=== PATIENT | male | born 1985 | race Caucasian/White ===

== ENCOUNTER 2019-03-10 17:21 | Emergency (ER) | payer OTHER ==
[~2019-03-10] VITALS: Ht 167.6 cm; Wt 68.0 kg
--- NOTE | 2019-03-10 17:21 | NUR ---
Patient BIB ambulance and brought to bed 1 and gown d/t having 2 minutes of tonic-clonic seizures @ the [facility] per report. Patient is agitated but does not complain of any pain @ this time. Patient able to answer questions but cannot provide specifics d/t agitation. Safety precautions enforced. Seizure pads in place.
--- NOTE | 2019-03-10 17:30 | NUR ---
Patient to ER bed 01 to gown for evaluation. Side rails up. Report given to Kimmie GAXIOLA.
[2019-03-10 17:31] VITALS: BP_SYST 139
--- NOTE | 2019-03-10 17:39 | NUR ---
Accjul[facility]. made aware.
--- NOTE | 2019-03-10 17:43 | NUR ---
Dr. Sweeney @ bedside for examination.
[2019-03-10] MEDS ORDERED: levETIRAcetam 500 MG IV PREMIX 100 ML IV ONE (18:00)
[2019-03-10 18:25] LABS: CALCIUM 9.1 mg/dL (8.4-11.0); CREATININE 1.01 mg/dL (0.55-1.30); POTASSIUM 3.8 mmol/L (3.5-5.1)
[2019-03-10 18:30] LABS: ALBUMIN 3.9 g/dL (3.4-4.8)
[2019-03-10 19:02] VITALS: BP_SYST 135
== END 2019-03-10 19:02 | disposition home or self-care (01) ==
LOC: SED 17:21
DX: R56.9 Unspecified convulsions (principal); R03.0 Elevated blood-pressure reading, without diagnosis of hypertension
CPT/HCPCS: 36415; 80053; 93005; 96365; 99284; J1953